=== PATIENT | female | born 1960 | race African-American/Black ===

== ENCOUNTER 2023-05-04 12:29 | Inpatient (IN) ==
[2023-05-04] MEDS ORDERED: Furosemide 40 mg/4 ml IV VIAL IV SLOW PU ONE (14:46)
[2023-05-04 14:51] LABS: Hematocrit 31.2 % (35-45); Mean Corpuscular Hemoglobin 27.6 pg (27-33); Mean Corpuscular Hgb Conc 32.2 g/dL (31-36); Mean Corpuscular Volume 85.9 fL (80-97); Mean Platelet Volume 9.6 fL (7.5-11.2); Platelet Count 91 10^3/uL (150-450); Red Blood Count 3.64 10^6/uL (3.63-4.92); Red Cell Distribution Width 17.9 % (12-17); White Blood Count 9.3 10^3/uL (3.8-11.8)
[2023-05-04 15:10] LABS: PCO2 Arterial 47 mmHg (35-45); PO2 Arterial 134 mmHg (80-100)
[2023-05-04 15:11] LABS: ABS Basophils 0.1 10^3/uL (0.0-0.1); ABS Lymphocytes 0.5 10^3/uL (1.0-4.8); ABS Monocytes 0.4 10^3/uL (0.0-0.9); ABS Neutrophils 8.3 10^3/uL (1.5-7.6); Lymphocyte % 5.8 %
[2023-05-04 15:16] LABS: Albumin/Globulin Ratio 1.3 (1-3); Calcium 8.6 mg/dL (8.6-10.3); Creatinine, Serum 1.26 mg/dL (0.51-0.95); Potassium 3.4 mmol/L (3.5-5.0); Total Bilirubin 0.6 mg/dL (0.2-1.0); eGFR CKD-EPI 47.7 (>60)
[2023-05-04] MEDS ORDERED: LORazepam 2 mg VIAL 1 ml IV PUSH ONE (16:08)
[2023-05-04] MEDS ORDERED: Lorazepam PYXIS KEY PRN (16:08)
[2023-05-04] MEDS ORDERED: Etomidate 20 mg/10 ml 2 MG/ML 10 ml VIAL IV ONE (17:23)
[2023-05-04] MEDS ORDERED: Succinylcholine 200 mg VIAL 20 mg/ml 10 ml VIAL (200 mg) IV ONE (17:23)
[2023-05-04] MEDS ORDERED: Propofol 10 mg/ml 100 ML BTL 1,000 MG/100 ML BTL ONE (17:26)
[2023-05-04] MEDS ORDERED: Propofol 10 mg/ml 100 ML BTL 1,000 MG/100 ML BTL IV SCH (18:00)
[2023-05-04] MEDS ORDERED: fentaNYL 100 mcg/2 ml 50 MCG/ML VIAL IV SLOW PU ONE ×2 (18:11→18:52)
[2023-05-04] MEDS ORDERED: Norepinephrine 4 MG/250mL D5W 4,000 MCG/250 ML BAG IV ONE (18:29)
[2023-05-04] MEDS ORDERED: fentaNYL 100 mcg/2 ml 50 MCG/ML VIAL ONE (18:41)
[2023-05-04] MEDS ORDERED: fentaNYL INFUSION 50 mcg/mL VL 2,500 MCG/50 ML VIAL IV SCH (19:00)
[2023-05-04] MEDS ORDERED: Norepinephrine 4 MG/250mL D5W 4,000 MCG/250 ML BAG IV SCH (19:00)
[2023-05-04] MEDS: Propofol 10 mg/ml 100 ML BTL 1,000 MG/100 ML BTL IV SCH (20:48)
[2023-05-04] MEDS ORDERED: Chlorhexidine MOUTHWASH 0.12% 15 ML UDC ONE (21:10)
[2023-05-04] MEDS: KCL 20 MEQ/100 ML IVPREMIX 20 MEQ/100 ML BAG IV SCH ×2 (21:30→23:18)
[2023-05-04] MEDS: Chlorhexidine MOUTHWASH 0.12% 15 ML UDC TOPICAL SCH (21:41)
[2023-05-04 21:56] LABS: Urine Appearance Clear; Urine Bilirubin Negative (Negative); Urine Blood 2+ (Negative); Urine Color Straw; Urine Glucose Negative (Negative); Urine Ketones Negative (Negative); Urine Nitrite Negative (Negative); Urine Protein Negative (Negative); Urine Specific Gravity 1.004 (1.002-1.030); Urine Urobilinogen Negative (Negative)
[2023-05-04 22:01] LABS: Urine Bacteria Absent (Absent); Urine Red Blood Cell 1+(3-5/hpf) (Absent); Urine White Blood Cell Absent (Absent)
[2023-05-04] MEDS: Pantoprazole VIAL 40 MG VIAL IV SCH (23:19)
[2023-05-05] MEDS: Norepinephrine 4 MG/250mL D5W 4,000 MCG/250 ML BAG IV SCH ×3 (01:01→17:26)
[2023-05-05] MEDS: KCL 20 MEQ/100 ML IVPREMIX 20 MEQ/100 ML BAG IV SCH (01:22)
[2023-05-05] MEDS: Chlorhexidine MOUTHWASH 0.12% 15 ML UDC TOPICAL SCH ×6 (01:22→21:44)
[2023-05-05] MEDS: Propofol 10 mg/ml 100 ML BTL 1,000 MG/100 ML BTL IV SCH ×2 (03:08→17:27)
[2023-05-05 04:16] LABS: Hematocrit 29.4 % (35-45); Hemoglobin 9.7 g/dL (11.5-14.3); Mean Corpuscular Hemoglobin 28.2 pg (27-33); Mean Corpuscular Volume 85.5 fL (80-97); Mean Platelet Volume 10.3 fL (7.5-11.2); Platelet Count 94 10^3/uL (150-450); Red Blood Count 3.43 10^6/uL (3.63-4.92); Red Cell Distribution Width 17.4 % (12-17); White Blood Count 8.6 10^3/uL (3.8-11.8)
[2023-05-05 04:31] LABS: Albumin 3.5 g/dL (3.2-5.2); Albumin/Globulin Ratio 1.2 (1-3); Creatinine, Serum 1.21 mg/dL (0.51-0.95); Magnesium 1.3 mg/dL (1.9-2.7); Phosphorus 2.6 mg/dL (2.5-5.0); Total Bilirubin 0.8 mg/dL (0.2-1.0); Total Protein 6.5 g/dL (6.4-8.9)
[2023-05-05 04:54] LABS: ABS Lymphocytes 0.4 10^3/uL (1.0-4.8); ABS Monocytes 0.3 10^3/uL (0.0-0.9); ABS Neutrophils 7.8 10^3/uL (1.5-7.6); ABS Nucleated RBC 0.01 10^3/ul; Eosinophil % 0.2 %; Lymphocyte % 5.1 %; Nucleated Red Blood Cells % 0.1 %/100WBC (0.0-0.8)
[2023-05-05] MEDS ORDERED: Magnesium Sulf 4 GM/100 ML IV 4,000 MG/100 ML BAG IVPB ONE (04:55)
[2023-05-05] MEDS ORDERED: Furosemide 40 mg/4 ml IV VIAL IV ONE ×3 (11:05→18:00)
[2023-05-05] MEDS ORDERED: Furosemide 100 mg/10 ml IV VIAL IV ONE (16:18)
[2023-05-05 17:01] LABS: Creatinine, Serum 1.15 mg/dL (0.51-0.95); Potassium 3.8 mmol/L (3.5-5.0); eGFR CKD-EPI 53.2 (>60)
[2023-05-05 17:43] LABS: Magnesium 2.5 mg/dL (1.9-2.7)
[2023-05-05] MEDS ORDERED: Furosemide 20 mg/2 ml IV VIAL IV ONE ×2 (18:00)
[2023-05-05] MEDS: Pantoprazole VIAL 40 MG VIAL IV SCH (21:42)
[2023-05-06 00:10] LABS: Calcium 7.8 mg/dL (8.6-10.3); Creatinine, Serum 1.09 mg/dL (0.51-0.95); Phosphorus 2.7 mg/dL (2.5-5.0); Potassium 3.3 mmol/L (3.5-5.0); eGFR CKD-EPI 56.7 (>60)
[2023-05-06] MEDS ORDERED: Potassium Chloride LIQUID 20 MEQ/15 ML LIQUID NG TUBE ONE (01:00)
[2023-05-06] MEDS: Norepinephrine 4 MG/250mL D5W 4,000 MCG/250 ML BAG IV SCH ×2 (01:33→14:00)
[2023-05-06] MEDS: Chlorhexidine MOUTHWASH 0.12% 15 ML UDC TOPICAL SCH ×5 (02:41→18:45)
[2023-05-06] MEDS: Propofol 10 mg/ml 100 ML BTL 1,000 MG/100 ML BTL IV SCH (02:41)
[2023-05-06 05:12] LABS: Hematocrit 31.2 % (35-45); Hemoglobin 10.2 g/dL (11.5-14.3); Mean Corpuscular Hemoglobin 27.6 pg (27-33); Mean Corpuscular Hgb Conc 32.6 g/dL (31-36); Mean Corpuscular Volume 84.7 fL (80-97); Mean Platelet Volume 10.5 fL (7.5-11.2); Platelet Count 102 10^3/uL (150-450); Red Blood Count 3.68 10^6/uL (3.63-4.92); Red Cell Distribution Width 17.5 % (12-17); White Blood Count 5.7 10^3/uL (3.8-11.8)
[2023-05-06 05:24] LABS: Albumin 3.3 g/dL (3.2-5.2); Albumin/Globulin Ratio 1.1 (1-3); Calcium 7.9 mg/dL (8.6-10.3); Creatinine, Serum 1.21 mg/dL (0.51-0.95); Globulin 3.1 g/dL (2-4); Magnesium 1.9 mg/dL (1.9-2.7); Phosphorus 2.7 mg/dL (2.5-5.0); Total Bilirubin 0.7 mg/dL (0.2-1.0); Total Protein 6.4 g/dL (6.4-8.9)
[2023-05-06] MEDS ORDERED: Furosemide 40 mg/4 ml IV VIAL IV ONE (10:25)
[2023-05-06] MEDS: Nicotine PATCH 14 MG/24 HR PATCH TRANSDERM SCH (20:14)
[2023-05-06] MEDS: Pantoprazole VIAL 40 MG VIAL IV SCH (23:13)
[2023-05-07 05:17] LABS: Hemoglobin 10.7 g/dL (11.5-14.3); Mean Corpuscular Hemoglobin 27.5 pg (27-33); Mean Corpuscular Hgb Conc 32.5 g/dL (31-36); Mean Corpuscular Volume 84.5 fL (80-97); Platelet Count 94 10^3/uL (150-450); Red Blood Count 3.91 10^6/uL (3.63-4.92); Red Cell Distribution Width 17.3 % (12-17); White Blood Count 6.2 10^3/uL (3.8-11.8)
[2023-05-07 06:41] LABS: Calcium 8.2 mg/dL (8.6-10.3); Creatinine, Serum 1.11 mg/dL (0.51-0.95); Magnesium 1.7 mg/dL (1.9-2.7); Potassium 3.3 mmol/L (3.5-5.0); eGFR CKD-EPI 55.5 (>60)
[2023-05-07] MEDS ORDERED: Magnesium Sulfate 2 gm BAG 2 GM/50 ML BAG IVPB ONE (08:42)
[2023-05-07] MEDS ORDERED: KCL 20 MEQ/100 ML IVPREMIX 20 MEQ/100 ML BAG IV SCH (09:00)
[2023-05-07] MEDS: Nicotine PATCH 14 MG/24 HR PATCH TRANSDERM SCH (09:00)
[2023-05-07] MEDS ORDERED: Potassium Chloride LIQUID 20 MEQ/15 ML LIQUID PO ONE (09:08)
[2023-05-07] MEDS: Norepinephrine 4 MG/250mL D5W 4,000 MCG/250 ML BAG IV SCH (09:56)
[2023-05-08 04:32] LABS: Hematocrit 31.9 % (35-45); Hemoglobin 10.4 g/dL (11.5-14.3); Mean Corpuscular Hemoglobin 27.7 pg (27-33); Mean Corpuscular Hgb Conc 32.7 g/dL (31-36); Mean Corpuscular Volume 84.7 fL (80-97); Mean Platelet Volume 10.3 fL (7.5-11.2); Platelet Count 108 10^3/uL (150-450); Red Blood Count 3.76 10^6/uL (3.63-4.92); Red Cell Distribution Width 17.5 % (12-17); White Blood Count 5.2 10^3/uL (3.8-11.8)
[2023-05-08 04:46] LABS: ABS Eosinophils 0.1 10^3/uL (0.0-0.5); ABS Lymphocytes 1.2 10^3/uL (1.0-4.8); ABS Monocytes 0.7 10^3/uL (0.0-0.9); ABS Neutrophils 3.2 10^3/uL (1.5-7.6); ABS Nucleated RBC 0.01 10^3/ul; Lymphocyte % 23.1 %; Nucleated Red Blood Cells % 0.1 %/100WBC (0.0-0.8)
[2023-05-08 05:35] LABS: Calcium 8.7 mg/dL (8.6-10.3); Creatinine, Serum 0.99 mg/dL (0.51-0.95); Magnesium 2.3 mg/dL (1.9-2.7); Phosphorus 3.1 mg/dL (2.5-5.0); Potassium 3.7 mmol/L (3.5-5.0); eGFR CKD-EPI 63.7 (>60)
[2023-05-08] MEDS ORDERED: Potassium Chlor 20 meq TAB.ER PO ONE (07:24)
[2023-05-08] MEDS: Nicotine PATCH 14 MG/24 HR PATCH TRANSDERM SCH (09:57)
[2023-05-09 04:22] LABS: Hematocrit 31.7 % (35-45); Hemoglobin 10.4 g/dL (11.5-14.3); Mean Corpuscular Hemoglobin 27.8 pg (27-33); Mean Corpuscular Volume 84.4 fL (80-97); Platelet Count 121 10^3/uL (150-450); Red Blood Count 3.76 10^6/uL (3.63-4.92); Red Cell Distribution Width 17.1 % (12-17); White Blood Count 4.9 10^3/uL (3.8-11.8)
[2023-05-09 04:38] LABS: ABS Eosinophils 0.1 10^3/uL (0.0-0.5); ABS Lymphocytes 1.4 10^3/uL (1.0-4.8); ABS Monocytes 0.8 10^3/uL (0.0-0.9); ABS Neutrophils 2.5 10^3/uL (1.5-7.6); Eosinophil % 2.9 %; Lymphocyte % 28.2 %; Nucleated Red Blood Cells % 0.1 %/100WBC (0.0-0.8)
[2023-05-09 04:43] LABS: Calcium 8.9 mg/dL (8.6-10.3); Creatinine, Serum 0.77 mg/dL (0.51-0.95); Potassium 4.3 mmol/L (3.5-5.0); eGFR CKD-EPI 86.1 (>60)
[2023-05-09] MEDS: Nicotine PATCH 14 MG/24 HR PATCH TRANSDERM SCH (09:19)
[2023-05-10 04:28] LABS: Calcium 9.1 mg/dL (8.6-10.3); Creatinine, Serum 0.7 mg/dL (0.51-0.95); Magnesium 1.8 mg/dL (1.9-2.7); Potassium 4.2 mmol/L (3.5-5.0); eGFR CKD-EPI 96.5 (>60)
[2023-05-10 04:57] LABS: Hematocrit 31.7 % (35-45); Hemoglobin 10.2 g/dL (11.5-14.3); Mean Corpuscular Hemoglobin 27.4 pg (27-33); Mean Corpuscular Hgb Conc 32.2 g/dL (31-36); Red Blood Count 3.73 10^6/uL (3.63-4.92); Red Cell Distribution Width 17.3 % (12-17); White Blood Count 4.7 10^3/uL (3.8-11.8)
[2023-05-10 07:07] LABS: ABS Basophils 0.1 10^3/uL (0.0-0.1); ABS Eosinophils 0.2 10^3/uL (0.0-0.5); ABS Lymphocytes 1.6 10^3/uL (1.0-4.8); ABS Monocytes 0.7 10^3/uL (0.0-0.9); ABS Neutrophils 2.1 10^3/uL (1.5-7.6); ABS Nucleated RBC 0.01 10^3/ul; Anisocytosis 1+; Eosinophil % 4.2 %; Lymphocyte % 33.3 %; Mean Platelet Volume 9.2 fL (7.5-11.2); Nucleated Red Blood Cells % 0.2 %/100WBC (0.0-0.8); Platelet Count 161 10^3/uL (150-450)
[2023-05-10] MEDS: Nicotine PATCH 14 MG/24 HR PATCH TRANSDERM SCH (08:46)
[2023-05-11 05:59] LABS: ABS Basophils 0.1 10^3/uL (0.0-0.1); ABS Eosinophils 0.2 10^3/uL (0.0-0.5); ABS Lymphocytes 1.6 10^3/uL (1.0-4.8); ABS Monocytes 0.7 10^3/uL (0.0-0.9); ABS Neutrophils 2.8 10^3/uL (1.5-7.6); ABS Nucleated RBC 0.01 10^3/ul; Eosinophil % 3.1 %; Hematocrit 33.2 % (35-45); Lymphocyte % 29.7 %; Mean Corpuscular Hemoglobin 27.7 pg (27-33); Mean Corpuscular Hgb Conc 33.1 g/dL (31-36); Mean Corpuscular Volume 83.6 fL (80-97); Mean Platelet Volume 8.7 fL (7.5-11.2); Nucleated Red Blood Cells % 0.1 %/100WBC (0.0-0.8); Platelet Count 201 10^3/uL (150-450); Red Blood Count 3.97 10^6/uL (3.63-4.92); Red Cell Distribution Width 17.5 % (12-17); White Blood Count 5.2 10^3/uL (3.8-11.8)
[2023-05-11 06:22] LABS: Calcium 9.4 mg/dL (8.6-10.3); Creatinine, Serum 0.71 mg/dL (0.51-0.95); Magnesium 1.7 mg/dL (1.9-2.7); Potassium 4.1 mmol/L (3.5-5.0); eGFR CKD-EPI 94.9 (>60)
[2023-05-11] MEDS: Nicotine PATCH 14 MG/24 HR PATCH TRANSDERM SCH (10:16)
[2023-05-11 14:36] LABS: Ferritin 259.4 ng/mL (11-307)
[2023-05-11 14:48] LABS: HDL Cholesterol 34.9 mg/dL
[2023-05-11] MEDS: Benzocaine/Menthol LOZ PO PRN (20:28)
[2023-05-12] MEDS: Nicotine PATCH 14 MG/24 HR PATCH TRANSDERM SCH (08:39)
[2023-05-12] MEDS: Benzocaine/Menthol LOZ PO PRN (21:31)
[2023-05-13 06:05] LABS: Hematocrit 34.3 % (35-45); Hemoglobin 11.1 g/dL (11.5-14.3); Mean Corpuscular Hemoglobin 27.3 pg (27-33); Mean Corpuscular Hgb Conc 32.4 g/dL (31-36); Mean Corpuscular Volume 84.1 fL (80-97); Mean Platelet Volume 8.7 fL (7.5-11.2); Platelet Count 269 10^3/uL (150-450); Red Blood Count 4.08 10^6/uL (3.63-4.92); Red Cell Distribution Width 17.3 % (12-17); White Blood Count 6.4 10^3/uL (3.8-11.8)
[2023-05-13 06:15] LABS: Calcium 9.6 mg/dL (8.6-10.3); Creatinine, Serum 0.88 mg/dL (0.51-0.95); Magnesium 1.8 mg/dL (1.9-2.7); Potassium 4.2 mmol/L (3.5-5.0); eGFR CKD-EPI 73.3 (>60)
[2023-05-13 06:24] LABS: ABS Eosinophils 0.2 10^3/uL (0.0-0.5); ABS Lymphocytes 1.6 10^3/uL (1.0-4.8); ABS Monocytes 0.8 10^3/uL (0.0-0.9); ABS Neutrophils 3.8 10^3/uL (1.5-7.6); Eosinophil % 2.8 %; Lymphocyte % 25.4 %
[2023-05-13] MEDS: Nicotine PATCH 14 MG/24 HR PATCH TRANSDERM SCH (08:11)
[2023-05-13] MEDS: Benzocaine/Menthol LOZ PO PRN (21:13)
[2023-05-14] MEDS: Nicotine PATCH 14 MG/24 HR PATCH TRANSDERM SCH (09:03)
[2023-05-14 13:54] VITALS: BP 105/74
== END 2023-05-14 18:20 | disposition home or self-care (01) | DRG 871 ==
LOC: ED 12:29 → SUATTDRO 16:48 → EDHOLD 16:48 → ICU 19:51 → MEDTELE 05-10 06:07
PROVIDERS: ADMIT Internal Medicine Pulmonary Disease; ATTEND Internal Medicine

== ENCOUNTER 2023-06-27 09:52 | Inpatient (IN) ==
[~2023-06-27 09:52] MED LIST: Metoclopramide 5 MG/ML VIAL (10 mg) IV PRN; NS 0.45% 1000 ml BAG 1,000 ML IV SCH; Naloxone 0.4 mg VIAL 0.4 mg/ml 1 ml VIAL IV PRN; Ondansetron 4 mg VIAL 2 MG/ML 2 ml VIAL IV PRN
[2023-06-27] MEDS ORDERED: Buffered Lidocaine 1% SYRIN 1 ml ONE (10:13)
[2023-06-27] MEDS ORDERED: ceFAZolin 2 GM PREMIX 2 GM/50 ML BAG ONE (10:13)
[2023-06-27] MEDS: Buffered Lidocaine 1% SYRIN 1 ml INTRADERM ONE (11:05)
[2023-06-27] MEDS: Lactated Ringers 1000 ml BAG 1,000 ML IV SCH (11:05)
[2023-06-27] MEDS ORDERED: Bupivacaine 0.5% SDV PF 30ML VIAL ONE (12:14)
[2023-06-27] MEDS ORDERED: Midazolam 2 mg/2 ml VIAL 1 mg/ml 2 ml VIAL (2 mg) ONE (14:57)
[2023-06-27] MEDS ORDERED: Phenylephrine 40 mcg/mL 10mL (400mcg) SYRINGE ONE (14:57)
[2023-06-27] MEDS ORDERED: KETAMINE HCL 10 MG/ML 20 ml VIAL (200 MG) ONE (14:59)
[2023-06-27] MEDS ORDERED: Glycopyrrolate IV 0.2 MG/ML 1 ML VIAL ONE (15:19)
[2023-06-27] MEDS ORDERED: Ondansetron 4 mg VIAL 2 MG/ML 2 ml VIAL ONE (15:33)
[2023-06-27] MEDS ORDERED: Dexamethasone IV 4 MG/ML VIAL 1 ml VIAL ONE (15:33)
[2023-06-27] MEDS ORDERED: fentaNYL 100 mcg/2 ml 50 MCG/ML VIAL ONE ×3 (15:37→17:45)
[2023-06-27] MEDS ORDERED: Tranexamic Acid 1,000 MG/10 ML SDV ONE (15:54)
[2023-06-27] MEDS ORDERED: HYDROmorphone 0.5 MG/0.5 ML SYRINGE ONE ×2 (17:09→17:26)
[2023-06-27] MEDS: fentaNYL 100 mcg/2 ml 50 MCG/ML VIAL IV PRN (17:38)
[2023-06-27] MEDS ORDERED: Ondansetron 4 mg VIAL 2 MG/ML 2 ml VIAL IV PRN (19:34)
[2023-06-27] MEDS ORDERED: Dextrose 50% Syringe 50 ml 25 GM/50 ML SYRINGE IV PUSH PRN (22:21)
[2023-06-28] MEDS: Scopolamine 1 mg/72hr PATCH TRANSDERM ONE (06:38)
[2023-06-28] MEDS: Acetaminophen IV 1 GM/100ML 1,000 MG/100 ML BAG IV ONE (06:39)
[2023-06-28] MEDS: CMCS:Pravastatin 20 mg TAB (NF) PO SCH (09:27)
[2023-06-28] MEDS: fentaNYL 100 mcg/2 ml 50 MCG/ML VIAL IV SLOW PU PRN (11:57)
[2023-06-28] MEDS: ceFAZolin 1 GM ADVAN 1 GM in NS 0.9% 50 ML 50 ML IVPB SCH (11:59)
[2023-06-28 14:49] LABS: ABS Basophils 0.1 10^3/uL (0.0-0.1); ABS Lymphocytes 1.1 10^3/uL (1.0-4.8); ABS Monocytes 1.3 10^3/uL (0.0-0.9); ABS Neutrophils 12.1 10^3/uL (1.5-7.6); ABS Nucleated RBC 0.01 10^3/ul; Hemoglobin 10.3 g/dL (11.5-14.3); Lymphocyte % 7.8 %; Mean Corpuscular Hemoglobin 27.1 pg (27-33); Mean Corpuscular Hgb Conc 32.1 g/dL (31-36); Mean Corpuscular Volume 84.5 fL (80-97); Mean Platelet Volume 9.6 fL (7.5-11.2); Nucleated Red Blood Cells % 0.1 %/100WBC (0.0-0.8); Platelet Count 206 10^3/uL (150-450); Red Blood Count 3.79 10^6/uL (3.63-4.92); Red Cell Distribution Width 16.3 % (12-17); White Blood Count 14.5 10^3/uL (3.8-11.8)
[2023-06-28 17:47] LABS: Albumin/Globulin Ratio 1.3 (1-3); Calcium 9.5 mg/dL (8.6-10.3); Creatinine, Serum 0.89 mg/dL (0.51-0.95); Globulin 3.2 g/dL (2-4); Magnesium 1.7 mg/dL (1.9-2.7); Potassium 4.4 mmol/L (3.5-5.0); Total Bilirubin 0.3 mg/dL (0.2-1.0); Total Protein 7.2 g/dL (6.4-8.9); eGFR CKD-EPI 72.4 (>60)
[2023-06-28] MEDS: Triamcinolone 0.025% OINT 15 GM TUBE TOPICAL SCH (21:00)
[2023-06-28] MEDS: Magnesium Sulfate 2 gm BAG 2 GM/50 ML BAG IVPB ONE (21:22)
[2023-06-28] MEDS: Magnesium Sulfate IV 1GM/100ML 1 GM/100 ML BAG IV ONE (23:03)
[2023-06-30 02:53] LABS: Hematocrit 27.1 % (35-45)
[2023-06-30 05:59] LABS: ABS Basophils 0.1 10^3/uL (0.0-0.1); ABS Eosinophils 0.2 10^3/uL (0.0-0.5); ABS Lymphocytes 1.8 10^3/uL (1.0-4.8); ABS Monocytes 0.9 10^3/uL (0.0-0.9); ABS Neutrophils 4.9 10^3/uL (1.5-7.6); ABS Nucleated RBC 0.01 10^3/ul; Eosinophil % 2.8 %; Hematocrit 26.6 % (35-45); Hemoglobin 8.7 g/dL (11.5-14.3); Lymphocyte % 22.8 %; Mean Corpuscular Hemoglobin 27.5 pg (27-33); Mean Corpuscular Hgb Conc 32.6 g/dL (31-36); Mean Corpuscular Volume 84.2 fL (80-97); Mean Platelet Volume 9.6 fL (7.5-11.2); Nucleated Red Blood Cells % 0.1 %/100WBC (0.0-0.8); Platelet Count 164 10^3/uL (150-450); Red Blood Count 3.16 10^6/uL (3.63-4.92)
[2023-06-30 06:24] LABS: Anion Gap 8 mmol/L (2-16); Blood Urea Nitrogen 14 mg/dL (6-24); CO2 Carbon Dioxide 27 mmol/L (22-32); Calcium 8.8 mg/dL (8.6-10.3); Chloride 103 mmol/L (101-111); Creatinine, Serum 0.66 mg/dL (0.51-0.95); Glucose 90 mg/dL (70-100); Potassium 4.2 mmol/L (3.5-5.0); Sodium 138 mmol/L (135-145); eGFR CKD-EPI 97.9 (>60)
[2023-06-30 08:21] LABS: Magnesium 1.6 mg/dL (1.9-2.7)
[2023-06-30] MEDS: Magnesium Sulf 4 GM/100 ML IV 4,000 MG/100 ML BAG IVPB ONE (11:23)
[2023-06-30 16:34] LABS: % Iron Saturation 6 % (15-55); .Transferrin 250 mg/dL (203-362); Iron < 20 ug/dL (50-212); Total Iron Binding Capacity 350 mcg/dL (250-450); Unsaturated Iron Binding 330 ug/dL
[2023-06-30 16:55] LABS: Ferritin 36.3 ng/mL (11-307)
[2023-06-30] MEDS: Iron Sucrose 200 MG in NS 0.9% 100 ml BAG 100 ML IVPB SCH (19:50)
[2023-07-01 06:40] LABS: ABS Basophils 0.1 10^3/uL (0.0-0.1); ABS Eosinophils 0.3 10^3/uL (0.0-0.5); ABS Lymphocytes 1.4 10^3/uL (1.0-4.8); ABS Monocytes 0.7 10^3/uL (0.0-0.9); ABS Neutrophils 5.2 10^3/uL (1.5-7.6); Eosinophil % 3.3 %; Hematocrit 27.3 % (35-45); Hemoglobin 8.9 g/dL (11.5-14.3); Lymphocyte % 18.1 %; Mean Corpuscular Hemoglobin 27.5 pg (27-33); Mean Corpuscular Hgb Conc 32.6 g/dL (31-36); Mean Corpuscular Volume 84.3 fL (80-97); Mean Platelet Volume 9.5 fL (7.5-11.2); Platelet Count 175 10^3/uL (150-450); Red Blood Count 3.24 10^6/uL (3.63-4.92); White Blood Count 7.7 10^3/uL (3.8-11.8)
[2023-07-01 06:55] LABS: Creatinine, Serum 0.73 mg/dL (0.51-0.95); Potassium 4.5 mmol/L (3.5-5.0); eGFR CKD-EPI 91.8 (>60)
[2023-07-01] MEDS: Polyethylene Glycol 3350 17 GM PACKET PO SCH (08:39)
[2023-07-02 05:59] LABS: ABS Basophils 0.1 10^3/uL (0.0-0.1); ABS Eosinophils 0.4 10^3/uL (0.0-0.5); ABS Lymphocytes 2.1 10^3/uL (1.0-4.8); ABS Monocytes 0.8 10^3/uL (0.0-0.9); ABS Nucleated RBC 0.02 10^3/ul; Eosinophil % 3.8 %; Hematocrit 26.6 % (35-45); Hemoglobin 8.9 g/dL (11.5-14.3); Lymphocyte % 22.7 %; Mean Corpuscular Hemoglobin 27.8 pg (27-33); Mean Corpuscular Hgb Conc 33.3 g/dL (31-36); Mean Corpuscular Volume 83.4 fL (80-97); Mean Platelet Volume 9.7 fL (7.5-11.2); Nucleated Red Blood Cells % 0.2 %/100WBC (0.0-0.8); Platelet Count 204 10^3/uL (150-450); Red Blood Count 3.19 10^6/uL (3.63-4.92); Red Cell Distribution Width 16.2 % (12-17); White Blood Count 9.3 10^3/uL (3.8-11.8)
[2023-07-03 10:05] VITALS: BP 108/64
== END 2023-07-03 11:30 | disposition home or self-care (01) | DRG 982 ==
LOC: OR 09:52 → MEDTELE 09:52 → SUATTDRO 21:24
PROVIDERS: ADMIT Orthopaedic Surgery; ATTEND Internal Medicine